=== PATIENT | male | born 1955 | race Caucasian/White ===

== ENCOUNTER 2020-11-27 07:52 | Emergency (ER) | payer MEDICARE, MEDICAID ==
[~2020-11-27] VITALS: Ht 167.6 cm; Wt 75.0 kg
[2020-11-27] MEDS ORDERED: MORPHINE SULFATE 2 MG/ML SYRINGE IVP ONE (08:30)
[2020-11-27] MEDS ORDERED: ONDANSETRON HCL 4 MG/2 ML VIAL IVP ONE (08:30)
[2020-11-27] MEDS ORDERED: SODIUM CHLORIDE 0.9% 1,000 ML IV ONE (08:30)
[2020-11-27] MEDS ORDERED: BARIUM SULFATE 0.1% SUSPENSION 450 ML BOTTLE PO ONE (08:30)
[2020-11-27] MEDS ORDERED: IOHEXOL 350 MG/ML 100 ML VIAL ONE (09:05)
[2020-11-27] MEDS ORDERED: SODIUM CHLORIDE 0.9% 100 ML ONE (09:05)
[2020-11-27 09:07] LABS: COVID AG,FIA SOURCE NASOPHARYNGEAL
[2020-11-27 11:15] LABS: BASOPHILS % (AUTO) 1.4 % (0.0-2.0); EOSINOPHILS % (AUTO) 7.1 % (1.0-6.0); HEMATOCRIT 35.1 % (41-53); HEMOGLOBIN 11.7 g/dL (13.5-17.5); LYMPHOCYTES # (AUTO) 1.7 K/uL (1.0-4.8); LYMPHOCYTES % (AUTO) 27.8 % (22.0-44.0); MEAN CORPUSCULAR HGB CONC 33.3 G/dL (31.0-37.0); MEAN CORPUSCULAR VOLUME 84 fL (80-100); MONOCYTES # (AUTO) 0.7 K/uL (0.1-1.0); NEUTROPHILS # (AUTO) 3.2 K/uL (1.8-7.7); NEUTROPHILS % (AUTO) 51.7 % (40.0-70.0); PLATELET COUNT (AUTO) 327 K/uL (150-450); RED BLOOD CELL COUNT(AUTO) 4.16 MIL/uL (4.50-5.90); RED CELL DISTRIBUTION WIDTH 14.8 % (11.5-14.5)
[2020-11-27 11:31] LABS: ANION GAP 8 mmol/L (8-16); CARBON DIOXIDE 26 mmol/L (22-29); CHLORIDE 100 mmol/L (98-107); CREATININE 0.86 mg/dL (0.60-1.30); GLOMERULAR FILTR. RATE CALC > 60 mL/min (>60); GLUCOSE,RANDOM 88 mg/dL (70-110); POTASSIUM 4.1 mmol/L (3.5-5.1); SODIUM SERUM 134 mmol/L (136-145); UREA NITROGEN, BLOOD 9 mg/dL (7-18)
[2020-11-27 11:34] LABS: ALANINE AMINOTRANSFERASE 17 U/L (12-78); ALBUMIN 3.4 g/dL (3.4-5.0); ALKALINE PHOSPHATASE 89 U/L (46-116); ASPARTATE AMINOTRANSFERASE 13 U/L (15-37); BILIRUBIN,TOTAL 0.6 mg/dL (0.1-1.0); LIPASE 363 U/L (73-393); TOTAL PROTEIN, SERUM 7.9 g/dL (6.4-8.2)
[2020-11-27] MEDS ORDERED: HYDROmorphone 2 MG/ML VIAL IVP ONE (12:15)
[2020-11-27 13:34] LABS: APPEARANCE,URINE CLOUDY (CLEAR); BILIRUBIN,URINE NEGATIVE (NEGATIVE); GLUCOSE, URINE (UA) NEGATIVE (NEGATIVE); KETONES,URINE NEGATIVE (NEGATIVE); NITRATE,URINE NEGATIVE (NEGATIVE); OCCULT BLOOD,URINE NEGATIVE (NEGATIVE); PROTEIN,URINE NEGATIVE (NEGATIVE); UROBILINOGEN,URINE 0.2 mg/dL (<=1.0)
[2020-11-27 13:39] LABS: LEUKOCYTE ESTERASE ,URINE MODERATE (NEGATIVE); RBC,URINE None Seen /HPF (0-2)
[2020-11-27 13:40] LABS: BACTERIA,URINE Few /HPF (None Seen)
[2020-11-27] MEDS ORDERED: DIPHENOXYLATE/ATROP 2.5-0.025 MG TABLET PO ONE (14:15)
[2020-11-27] MEDS ORDERED: CEPHALEXIN MONOHYDRATE 500 MG CAPSULE PO ONE (14:15)
[2020-11-27 14:43] VITALS: BP 134/99
== END 2020-11-27 15:09 | disposition home or self-care (01) ==
LOC: EMS 07:52
DX: R10.84 Generalized abdominal pain (principal); K52.9 Noninfective gastroenteritis and colitis, unspecified; N39.0 Urinary tract infection, site not specified; Z20.822 Contact with and (suspected) exposure to COVID-19; Z87.39 Personal history of other diseases of the musculoskeletal system and connective tissue
CPT/HCPCS: 36415; 71045; 74177; 80053; 81001; 83605; 83690; 83880; 84484; 85025; 87040; 87077; 87086; 87186; 87426; 93005; 96361; 96374; 96375; 99285; J1170; J2270; J2405; J7030; Q9967; J7050

== ENCOUNTER 2020-11-29 13:08 | Emergency (ER) | payer MEDICARE, MEDICAID ==
[~2020-11-29] VITALS: Ht 175.3 cm; Wt 56.8 kg
[2020-11-29 13:18] VITALS: BP 124/67
[2020-11-29] MEDS ORDERED: HYDROmorphone 2 MG/ML VIAL IM ONE (13:45)
== END 2020-11-29 14:22 | disposition home or self-care (01) ==
LOC: EMS 13:08
DX: M25.572 Pain in left ankle and joints of left foot (principal)
CPT/HCPCS: 96372; 99283; J1170

== ENCOUNTER 2020-12-11 09:39 | Emergency (ER) | payer MEDICARE, MEDICAID ==
[~2020-12-11] VITALS: Ht 177.8 cm; Wt 63.6 kg
[2020-12-11] MEDS ORDERED: HYDROmorphone 2 MG/ML VIAL IM ONE (12:45)
[2020-12-11 14:02] VITALS: BP 144/81
== END 2020-12-11 14:04 | disposition home or self-care (01) ==
LOC: EMS 09:42
DX: M25.571 Pain in right ankle and joints of right foot (principal); Z87.39 Personal history of other diseases of the musculoskeletal system and connective tissue
CPT/HCPCS: 96372; 99283; J1170

== ENCOUNTER 2020-12-13 12:46 | Emergency (ER) | payer MEDICARE, MEDICAID ==
[~2020-12-13] VITALS: Ht 175.3 cm; Wt 63.6 kg
[2020-12-13] MEDS ORDERED: TraMADol HCL 50 MG TABLET PO ONE (15:15)
[2020-12-13 15:18] VITALS: BP 166/74
== END 2020-12-13 15:34 | disposition home or self-care (01) ==
LOC: EMS 12:46
DX: S32.10XA Unspecified fracture of sacrum, initial encounter for closed fracture (principal); W19.XXXA Unspecified fall, initial encounter; Y93.89 Activity, other specified; Y92.89 Other specified places as the place of occurrence of the external cause; Y99.8 Other external cause status
CPT/HCPCS: 72220; 99283

== ENCOUNTER 2020-12-20 12:37 | Emergency (ER) | payer MEDICARE, MEDICAID ==
[~2020-12-20] VITALS: Ht 175.3 cm; Wt 63.6 kg
[2020-12-20 13:45] VITALS: BP 133/87
== END 2020-12-20 14:48 | disposition home or self-care (01) ==
LOC: EMS 12:37
DX: H66.91 Otitis media, unspecified, right ear (principal)
CPT/HCPCS: 99283; Z7502

== ENCOUNTER 2021-02-11 13:18 | Emergency (ER) | payer MEDICARE, MEDICAID ==
[~2021-02-11] VITALS: Ht 175.3 cm; Wt 68.2 kg
[~2021-02-11 13:18] MED LIST: AMLO-257 PO
[2021-02-11] MEDS ORDERED: HYDR200T38 PO (13:37)
[2021-02-11 13:41] VITALS: BP 116/85
[2021-02-11] MEDS ORDERED: RAME8TAB24 PO (14:43)
[2021-02-11] MEDS ORDERED: GABA-529 PO (14:43)
[2021-02-11] MEDS ORDERED: QUET50TA79 PO (14:43)
[2021-02-11] MEDS ORDERED: TRAZ-252 PO (14:43)
[2021-02-11] MEDS ORDERED: ALPR0.255 PO (14:43)
[2021-02-11] MEDS ORDERED: OxyCODONE HCL 10 MG IR TABLET PO ONE (14:45)
== END 2021-02-11 15:29 | disposition home or self-care (01) ==
LOC: EMS 13:18
DX: M79.18 Myalgia, other site (principal); Z76.0 Encounter for issue of repeat prescription; Z79.899 Other long term (current) drug therapy
CPT/HCPCS: 99283

== ENCOUNTER 2021-03-21 10:07 | Emergency (ER) | payer MEDICARE, MEDICAID ==
[~2021-03-21] VITALS: Ht 175.3 cm; Wt 68.2 kg
[~2021-03-21 10:07] MED LIST changes: +ALPR0.255 PO; +GABA-529 PO; +HYDR200T38 PO; +QUET50TA79 PO; +RAME8TAB24 PO; +TRAZ-252 PO
[2021-03-21 10:38] VITALS: BP 152/86
== END 2021-03-21 13:51 | disposition home or self-care (01) ==
LOC: EMS 10:18
DX: M25.561 Pain in right knee (principal); Z79.899 Other long term (current) drug therapy
CPT/HCPCS: 99283; Z7502

== ENCOUNTER 2021-05-21 15:10 | Emergency (ER) | payer MEDICARE, MEDICAID ==
[~2021-05-21] VITALS: Ht 175.3 cm; Wt 63.6 kg
[2021-05-21] MEDS ORDERED: OXYC20TA58 PO (15:36)
[2021-05-21] MEDS ORDERED: DIPH-654 PO (15:36)
[2021-05-21 15:38] VITALS: BP 136/99
[2021-05-21] MEDS ORDERED: OxyCODONE HCL/ACETAMINOPHEN 5-325 MG TABLET PO ONE (15:45)
[2021-05-21] MEDS ORDERED: DIPHENOXYLATE/ATROP 2.5-0.025 MG TABLET PO ONE (15:45)
== END 2021-05-21 15:50 | disposition home or self-care (01) ==
LOC: EMS 15:25
DX: R10.84 Generalized abdominal pain (principal); M06.9 Rheumatoid arthritis, unspecified; Z79.899 Other long term (current) drug therapy
CPT/HCPCS: 99283

== ENCOUNTER 2021-05-24 04:48 | Emergency (ER) | payer MEDICARE, MEDICAID ==
[~2021-05-24] VITALS: Ht 175.3 cm; Wt 66.4 kg
[~2021-05-24 04:48] MED LIST changes: +DIPH-654 PO; +OXYC20TA58 PO
[2021-05-24 04:58] VITALS: BP 161/71
[2021-05-24] MEDS ORDERED: FAMOTIDINE 20 MG TABLET PO ONE (05:15)
[2021-05-24] MEDS ORDERED: KETOROLAC TROMETHAMINE 30 MG/ML VIAL IM ONE (05:15)
[2021-05-24] MEDS ORDERED: FAMO20 PO (05:18)
[2021-05-24] MEDS ORDERED: PredniSONE 20 MG TABLET PO ONE (05:30)
== END 2021-05-24 06:19 | disposition home or self-care (01) ==
LOC: EMS 04:49
DX: G89.29 Other chronic pain (principal); K21.9 Gastro-esophageal reflux disease without esophagitis; F41.9 Anxiety disorder, unspecified; M25.542 Pain in joints of left hand; M25.541 Pain in joints of right hand; Z76.0 Encounter for issue of repeat prescription
CPT/HCPCS: 96372; 99283; J1885; J7512

== ENCOUNTER 2021-06-17 14:00 | Emergency (ER) | payer MEDICARE, MEDICAID ==
[~2021-06-17] VITALS: Ht 175.3 cm; Wt 65.9 kg
[~2021-06-17 14:00] MED LIST changes: +FAMO20 PO
[2021-06-17] MEDS ORDERED: HYDROCODONE/ACETAMINOPHEN 5-325 MG TABLET PO ONE (15:30)
[2021-06-17] MEDS ORDERED: PredniSONE 20 MG TABLET PO ONE (15:30)
[2021-06-17] MEDS ORDERED: OXYC1TAB6 PO (15:37)
[2021-06-17 16:50] VITALS: BP 140/102
[2021-06-17] MEDS ORDERED: PRED-554 PO (16:58)
== END 2021-06-17 17:18 | disposition home or self-care (01) ==
LOC: EMS 14:00
DX: M25.531 Pain in right wrist (principal); M25.532 Pain in left wrist; M25.562 Pain in left knee; M25.561 Pain in right knee; Z82.61 Family history of arthritis
CPT/HCPCS: 73130; 99283; J7512

== ENCOUNTER 2021-06-20 11:08 | Emergency (ER) | payer MEDICARE, MEDICAID ==
[~2021-06-20] VITALS: Ht 175.3 cm; Wt 63.6 kg
[~2021-06-20 11:08] MED LIST changes: -ALPR0.255 PO; -AMLO-257 PO; -DIPH-654 PO; -FAMO20 PO; -GABA-529 PO; -HYDR200T38 PO; +OXYC1TAB6 PO; -OXYC20TA58 PO; +PRED-554 PO; -QUET50TA79 PO; -RAME8TAB24 PO; -TRAZ-252 PO
[2021-06-20 11:17] VITALS: BP 156/98
[2021-06-20] MEDS ORDERED: TRAM50TA4 PO (11:17)
[2021-06-20] MEDS ORDERED: MORPHINE SULFATE 4 MG/ML SYRINGE IM ONE (13:00)
[2021-06-20] MEDS ORDERED: PRED-554 PO (13:07)
[2021-06-20] MEDS ORDERED: PredniSONE 20 MG TABLET PO ONE (13:15)
== END 2021-06-20 13:41 | disposition home or self-care (01) ==
LOC: EMS 11:08
DX: M06.9 Rheumatoid arthritis, unspecified (principal); G89.29 Other chronic pain; Z76.0 Encounter for issue of repeat prescription
CPT/HCPCS: 96372; 99283; J2270; J7512

== ENCOUNTER 2021-06-24 13:41 | Emergency (ER) | payer MEDICARE, MEDICAID ==
[~2021-06-24] VITALS: Ht 167.6 cm; Wt 63.6 kg
[~2021-06-24 13:41] MED LIST changes: +TRAM50TA4 PO
[2021-06-24] MEDS ORDERED: PRED-554 PO (14:28)
[2021-06-24] MEDS ORDERED: PredniSONE 20 MG TABLET PO ONE (14:30)
[2021-06-24] MEDS ORDERED: MORPHINE SULFATE 4 MG/ML SYRINGE IM ONE (14:30)
[2021-06-24 14:46] VITALS: BP 132/83
== END 2021-06-24 15:00 | disposition home or self-care (01) ==
LOC: EMS 13:51
DX: M06.9 Rheumatoid arthritis, unspecified (principal); M54.50 Low back pain, unspecified; M79.652 Pain in left thigh; M79.651 Pain in right thigh; M25.532 Pain in left wrist; M25.531 Pain in right wrist; G89.29 Other chronic pain
CPT/HCPCS: 96372; 99283; J2270; J7512

== ENCOUNTER 2021-07-02 09:27 | Emergency (ER) | payer MEDICARE, MEDICAID ==
[~2021-07-02] VITALS: Ht 175.3 cm; Wt 63.6 kg
[2021-07-02] MEDS ORDERED: FAMOTIDINE 20 MG TABLET PO ONE (10:00)
[2021-07-02] MEDS ORDERED: OxyCODONE HCL 5 MG IR TABLET PO ONE ×2 (10:00→10:15)
[2021-07-02 10:17] VITALS: BP 161/126
== END 2021-07-02 10:24 | disposition home or self-care (01) ==
LOC: EMS 09:31
DX: R52 Pain, unspecified (principal); M06.9 Rheumatoid arthritis, unspecified
CPT/HCPCS: 99283

== ENCOUNTER 2021-07-16 14:55 | Emergency (ER) | payer MEDICARE, MEDICAID ==
[~2021-07-16] VITALS: Ht 175.3 cm; Wt 65.0 kg
[2021-07-16] MEDS ORDERED: ONDANSETRON HCL 4 MG/2 ML VIAL IM ONE (15:45)
[2021-07-16 15:56] LABS: COVID AG,FIA SOURCE NASAL SWAB
[2021-07-16 16:14] LABS: INFLUENZA TYPE A NEGATIVE FOR TYPE A (NEGATIVE); INFLUENZA TYPE B NEGATIVE FOR TYPE B (NEGATIVE)
[2021-07-16 16:25] LABS: BASOPHILS % (AUTO) 0.9 % (0.0-2.0); EOSINOPHILS % (AUTO) 5.5 % (1.0-6.0); HEMATOCRIT 38.3 % (41-53); HEMOGLOBIN 12.9 g/dL (13.5-17.5); LYMPHOCYTES # (AUTO) 1.3 K/uL (1.0-4.8); LYMPHOCYTES % (AUTO) 20.8 % (22.0-44.0); MEAN CORPUSCULAR HEMOGLOBIN 28.8 pg (26.0-34.0); MEAN CORPUSCULAR HGB CONC 33.6 G/dL (31.0-37.0); MEAN CORPUSCULAR VOLUME 86 fL (80-100); MONOCYTES # (AUTO) 0.9 K/uL (0.1-1.0); MONOCYTES % (AUTO) 14.9 % (2.0-9.0); NEUTROPHILS # (AUTO) 3.7 K/uL (1.8-7.7); NEUTROPHILS % (AUTO) 57.9 % (40.0-70.0); PLATELET COUNT (AUTO) 271 K/uL (150-450); RED BLOOD CELL COUNT(AUTO) 4.47 MIL/uL (4.50-5.90); RED CELL DISTRIBUTION WIDTH 17.2 % (11.5-14.5)
[2021-07-16 16:35] LABS: ANION GAP 10 mmol/L (8-16); CALCIUM, TOTAL 9.6 mg/dL (8.8-10.5); CARBON DIOXIDE 26 mmol/L (22-29); CHLORIDE 96 mmol/L (98-107); CREATININE 0.89 mg/dL (0.60-1.30); GLOMERULAR FILTR. RATE CALC > 60 mL/min (>60); GLUCOSE,RANDOM 97 mg/dL (70-110); POTASSIUM 4.9 mmol/L (3.5-5.1); SODIUM SERUM 132 mmol/L (136-145); UREA NITROGEN, BLOOD 19 mg/dL (7-18)
[2021-07-16 16:40] LABS: ALANINE AMINOTRANSFERASE 18 U/L (12-78); ALBUMIN 3.3 g/dL (3.4-5.0); ALKALINE PHOSPHATASE 126 U/L (46-116); ASPARTATE AMINOTRANSFERASE 13 U/L (15-37); BILIRUBIN,TOTAL 0.6 mg/dL (0.1-1.0); LIPASE 145 U/L (73-393); TOTAL PROTEIN, SERUM 7.5 g/dL (6.4-8.2)
[2021-07-16 16:45] VITALS: BP 144/99
[2021-07-16] MEDS ORDERED: ONDA-104 PO (16:46)
== END 2021-07-16 17:10 | disposition home or self-care (01) ==
LOC: EMS 14:55
DX: R11.2 Nausea with vomiting, unspecified (principal); R19.7 Diarrhea, unspecified; F41.9 Anxiety disorder, unspecified; G89.29 Other chronic pain; M06.9 Rheumatoid arthritis, unspecified; Z20.822 Contact with and (suspected) exposure to COVID-19
CPT/HCPCS: 36415; 80053; 82962; 83690; 85025; 87426; 87804; 96372; 99283; J2405

== ENCOUNTER 2021-08-15 15:37 | Emergency (ER) | payer MEDICARE, MEDICAID ==
[~2021-08-15] VITALS: Ht 175.3 cm; Wt 63.6 kg
[~2021-08-15 15:37] MED LIST changes: +ONDA-104 PO
[2021-08-15] MEDS ORDERED: FAMOTIDINE 20 MG TABLET PO ONE (16:00)
[2021-08-15] MEDS ORDERED: DICL100G51 TP (18:28)
[2021-08-15 21:12] VITALS: BP 144/73
== END 2021-08-15 21:14 | disposition home or self-care (01) ==
LOC: EMS 15:37
DX: M25.552 Pain in left hip (principal); M06.9 Rheumatoid arthritis, unspecified
CPT/HCPCS: 72170; 99283

== ENCOUNTER 2022-01-18 11:18 | Emergency (ER) | payer MEDICARE, MEDICAID ==
[~2022-01-18] VITALS: Ht 175.3 cm; Wt 63.0 kg
[~2022-01-18 11:18] MED LIST changes: +DICL100G51 TP; +TRAM-559 PO; -TRAM50TA4 PO
[2022-01-18] MEDS ORDERED: ACETAMINOPHEN 500 MG TABLET PO ONE (12:45)
[2022-01-18] MEDS ORDERED: KETOROLAC TROMETHAMINE 30 MG/ML VIAL IM ONE (12:45)
[2022-01-18 13:40] LABS: APPEARANCE,URINE HAZY (CLEAR); BILIRUBIN,URINE NEGATIVE (NEGATIVE); GLUCOSE, URINE (UA) NEGATIVE (NEGATIVE); KETONES,URINE NEGATIVE (NEGATIVE); LEUKOCYTE ESTERASE ,URINE LARGE (NEGATIVE); NITRATE,URINE POSITIVE (NEGATIVE); OCCULT BLOOD,URINE MODERATE (NEGATIVE); PH,URINE 6.5 (5.0-8.0); PROTEIN,URINE 30-70 mg/dL (NEGATIVE); SPECIFIC GRAVITIY, URINE 1.018 (1.003-1.030); UROBILINOGEN,URINE <=1.0 mg/dL (<=1.0)
[2022-01-18 13:51] LABS: WBC,URINE >100 /HPF (0-5)
[2022-01-18 13:52] LABS: BACTERIA,URINE Many /HPF (None Seen)
[2022-01-18] MEDS ORDERED: CEPH-558 PO (14:20)
[2022-01-18] MEDS ORDERED: CEPHALEXIN MONOHYDRATE 500 MG CAPSULE PO ONE (14:30)
[2022-01-18 14:59] VITALS: BP 135/74
== END 2022-01-18 15:41 | disposition home or self-care (01) ==
LOC: EMS 13:28
DX: S83.412A Sprain of medial collateral ligament of left knee, initial encounter (principal); N39.0 Urinary tract infection, site not specified; M06.9 Rheumatoid arthritis, unspecified; X58.XXXA Exposure to other specified factors, initial encounter; Y93.89 Activity, other specified; Y92.89 Other specified places as the place of occurrence of the external cause; Y99.8 Other external cause status
CPT/HCPCS: 99284; 81001; 87086; 87186; 73562; 96372; J1885

== ENCOUNTER 2022-10-25 13:44 | Inpatient (IN) | payer MEDICARE, MEDICAID ==
[~2022-10-25] VITALS: Ht 175.3 cm; Wt 63.5 kg
[~2022-10-25 13:44] MED LIST changes: +CEPH-558 PO; -DICL100G51 TP; +DICL100G60 TP
[2022-10-25] MEDS ORDERED: FAMOTIDINE 20 MG/2 ML VIAL IVP ONE (14:30)
[2022-10-25] MEDS ORDERED: ONDANSETRON HCL 4 MG/2 ML VIAL IVP ONE (14:30)
[2022-10-25 15:21] LABS: BASOPHILS % (AUTO) 0.3 % (0.0-2.0); HEMATOCRIT 43.1 % (41-53); HEMOGLOBIN 14.1 g/dL (13.5-17.5); LYMPHOCYTES # (AUTO) 0.8 K/uL (1.0-4.8); LYMPHOCYTES % (AUTO) 11.3 % (22.0-44.0); MEAN CORPUSCULAR HEMOGLOBIN 28.8 pg (26.0-34.0); MEAN CORPUSCULAR HGB CONC 32.8 G/dL (31.0-37.0); MEAN CORPUSCULAR VOLUME 88 fL (80-100); MONOCYTES # (AUTO) 1.2 K/uL (0.1-1.0); MONOCYTES % (AUTO) 16.4 % (2.0-9.0); NEUTROPHILS # (AUTO) 5.3 K/uL (1.8-7.7); PLATELET COUNT (AUTO) 128 K/uL (150-450); RED BLOOD CELL COUNT(AUTO) 4.91 MIL/uL (4.50-5.90); WHITE BLOOD COUNT (AUTO) 7.4 K/uL (4.5-11.0)
[2022-10-25 15:27] LABS: COVID AG,FIA SOURCE NASOPHARYNGEAL
[2022-10-25 15:35] LABS: PROTHROMBIN TIME 10.7 SEC (9.4-11.6)
[2022-10-25 15:36] LABS: ALANINE AMINOTRANSFERASE 29 U/L (12-78); ALBUMIN 3.1 g/dL (3.4-5.0); ALKALINE PHOSPHATASE 80 U/L (46-116); ANION GAP 15 mmol/L (8-16); ASPARTATE AMINOTRANSFERASE 18 U/L (15-37); BILIRUBIN,TOTAL 2.1 mg/dL (0.1-1.0); CALCIUM, TOTAL 8.6 mg/dL (8.8-10.5); CARBON DIOXIDE 21 mmol/L (22-29); CHLORIDE 92 mmol/L (98-107); CREATINE KINASE, TOTAL ONLY 39 U/L (39-308); CREATININE 0.58 mg/dL (0.60-1.30); GLOMERULAR FILTR. RATE CALC > 60 mL/min (>60); GLUCOSE,RANDOM 96 mg/dL (70-110); LIPASE 32 U/L (16-77); SODIUM SERUM 128 mmol/L (136-145); TOTAL PROTEIN, SERUM 7.5 g/dL (6.4-8.2); UREA NITROGEN, BLOOD 18 mg/dL (7-18)
[2022-10-25 15:37] LABS: TROPONIN I-HIGH SENSITIVITY 6 ng/L (<76)
[2022-10-25 15:39] LABS: B-TYPE NATRIURETIC PEPTIDE 115 pg/mL (0-100)
[2022-10-25 15:40] LABS: SARS-COV2 (COVID) ANTIGEN,FIA Negative (Negative)
[2022-10-25 15:41] LABS: POTASSIUM 2.5 mmol/L (3.5-5.1)
[2022-10-25 15:42] LABS: PHOSPHORUS 1.4 mg/dL (2.5-4.9)
[2022-10-25] MEDS ORDERED: POTASSIUM CHLORIDE 20 MEQ ER TABLET PO ONE (16:00)
[2022-10-25] MEDS ORDERED: POTASSIUM PHOS,M-BASIC-D-BASIC 10 MMOL in DEXTROSE 5%-WATER 100 ML IV ONE (16:00)
[2022-10-25] MEDS: POTASSIUM CHL 10 MEQ/WATER 50 ML IV SCH ×2 (16:05→17:05)
[2022-10-25] MEDS ORDERED: MAGNESIUM HYDROXIDE SUSPENSION 30 ML UDCUP PO PRN (17:00)
[2022-10-25] MEDS ORDERED: SODIUM CHLORIDE 0.9% 1,000 ML IV ONE (17:00)
[2022-10-25] MEDS ORDERED: POTASSIUM CHLORIDE 20 MEQ ER TABLET PO PRN (17:00)
[2022-10-25] MEDS ORDERED: POTASSIUM CHL 10 MEQ/WATER 50 ML IV PRN (17:00)
[2022-10-25 17:16] LABS: APPEARANCE,URINE CLEAR (CLEAR); BILIRUBIN,URINE NEGATIVE (NEGATIVE); COLOR,URINE YELLOW (YELLOW); GLUCOSE, URINE (UA) NEGATIVE (NEGATIVE); KETONES,URINE 80-100 mg/dL (NEGATIVE); LEUKOCYTE ESTERASE ,URINE LARGE (NEGATIVE); NITRATE,URINE POSITIVE (NEGATIVE); OCCULT BLOOD,URINE LARGE (NEGATIVE); PROTEIN,URINE 30-70 mg/dL (NEGATIVE); SPECIFIC GRAVITIY, URINE 1.022 (1.003-1.030)
[2022-10-25 17:34] LABS: BACTERIA,URINE Few /HPF (None Seen); SQUAMOUS EPITHELIAL CELL,UR Few /LPF (None Seen)
[2022-10-25] MEDS ORDERED: CefTRIAXone 1 GM/DEXTROSE 50 ML IV ONE (21:00)
[2022-10-25 22:07] VITALS: BP 147/87; PULSE 85; RESP 19; TEMP 98.4
[2022-10-25] MEDS: HEPARIN SODIUM,PORCINE 5,000 UNITS/ML VIAL SQ SCH (23:45)
[2022-10-26] VITALS (8 sets, daily range): BP systolic 130–141; BP diastolic 70–106; PULSE 80–92; RESP 17–20; TEMP 96.5–99.9
[2022-10-26] MEDS: ACETAMINOPHEN 325 MG TABLET PO PRN ×2 (00:11→08:18)
[2022-10-26] MEDS: FAMOTIDINE 20 MG TABLET PO SCH (08:17)
[2022-10-26] MEDS: HEPARIN SODIUM,PORCINE 5,000 UNITS/ML VIAL SQ SCH ×3 (08:17→23:07)
[2022-10-26 12:08] LABS: ANION GAP 8 mmol/L (8-16); CALCIUM, TOTAL 7.6 mg/dL (8.8-10.5); CARBON DIOXIDE 24 mmol/L (22-29); CHLORIDE 99 mmol/L (98-107); CREATININE 0.62 mg/dL (0.60-1.30); GLOMERULAR FILTR. RATE CALC > 60 mL/min (>60); GLUCOSE,RANDOM 88 mg/dL (70-110); POTASSIUM 3.7 mmol/L (3.5-5.1); SODIUM SERUM 130 mmol/L (136-145); UREA NITROGEN, BLOOD 13 mg/dL (7-18)
[2022-10-26 12:10] LABS: PHOSPHORUS 1.3 mg/dL (2.5-4.9)
[2022-10-26] MEDS ORDERED: POTASSIUM PHOS,M-BASIC-D-BASIC 30 MEQ in DEXTROSE 5%-WATER 150 ML IV ONE (12:45)
[2022-10-26] MEDS ORDERED: SODIUM CHLORIDE 0.9% 500 ML IV ONE (13:01)
[2022-10-26] MEDS: TraMADol HCL 50 MG TABLET PO PRN ×2 (16:34→23:08)
[2022-10-27 03:06] LABS: HEPATITIS C AB (EIA) Non Reactive (Non Reactive)
[2022-10-27 04:18] VITALS: BP 124/81; PULSE 98; RESP 20; TEMP 99.4
[2022-10-27 06:52] LABS: ANION GAP 9 mmol/L (8-16); CALCIUM, TOTAL 7.8 mg/dL (8.8-10.5); CARBON DIOXIDE 23 mmol/L (22-29); CHLORIDE 97 mmol/L (98-107); GLOMERULAR FILTR. RATE CALC > 60 mL/min (>60); GLUCOSE,RANDOM 92 mg/dL (70-110); POTASSIUM 3.5 mmol/L (3.5-5.1); SODIUM SERUM 129 mmol/L (136-145); UREA NITROGEN, BLOOD 10 mg/dL (7-18)
[2022-10-27 06:54] LABS: PHOSPHORUS 1.3 mg/dL (2.5-4.9)
[2022-10-27 07:15] VITALS: BP 128/77; PULSE 98; RESP 20; TEMP 100
[2022-10-27] MEDS: FAMOTIDINE 20 MG TABLET PO SCH (07:48)
[2022-10-27] MEDS: TraMADol HCL 50 MG TABLET PO PRN ×2 (07:50→14:41)
[2022-10-27] MEDS: HEPARIN SODIUM,PORCINE 5,000 UNITS/ML VIAL SQ SCH ×2 (08:00→16:00)
[2022-10-27] MEDS ORDERED: SODIUM PHOS,M-BASIC-D-BASIC 30 MEQ in DEXTROSE 5%-WATER 150 ML IV ONE (10:30)
[2022-10-27 11:52] VITALS: BP 122/65; PULSE 91; RESP 18; TEMP 99.7
[2022-10-27] MEDS: CefTRIAXone SODIUM 250 MG in DEXTROSE 5%-WATER 50 ML IV SCH (12:54)
[2022-10-27 15:50] VITALS: BP 137/73; PULSE 84; RESP 18; TEMP 99
[2022-10-27 20:21] VITALS: BP 115/66; PULSE 85; RESP 18; TEMP 98.1
[2022-10-28 00:58] VITALS: BP 119/69; PULSE 82; RESP 18; TEMP 98
[2022-10-28] MEDS: TraMADol HCL 50 MG TABLET PO PRN ×3 (04:46→20:33)
[2022-10-28 05:16] VITALS: BP 125/68; PULSE 80; RESP 17; TEMP 97.9
[2022-10-28 07:35] VITALS: BP 122/71; PULSE 87; RESP 18; TEMP 98
[2022-10-28] MEDS: FAMOTIDINE 20 MG TABLET PO SCH (09:07)
[2022-10-28] MEDS: HEPARIN SODIUM,PORCINE 5,000 UNITS/ML VIAL SQ SCH ×3 (09:07→16:10)
[2022-10-28] MEDS: CefTRIAXone SODIUM 250 MG in DEXTROSE 5%-WATER 50 ML IV SCH (10:49)
[2022-10-28 11:54] VITALS: BP 117/77; PULSE 89; RESP 18; TEMP 97.8
[2022-10-28] MEDS: SODIUM,POTASSIUM PHOSPHATES POWDER PACKET PO SCH ×2 (12:35→18:12)
[2022-10-28 16:03] VITALS: BP 119/69; PULSE 88; RESP 18; TEMP 98
[2022-10-28 19:36] VITALS: BP 113/64; PULSE 99; RESP 18; TEMP 98.9
[2022-10-29 00:13] VITALS: BP 121/72; PULSE 94; RESP 18; TEMP 98.9
[2022-10-29] MEDS: TraMADol HCL 50 MG TABLET PO PRN ×3 (03:59→16:52)
[2022-10-29 04:00] VITALS: BP 127/65; PULSE 95; RESP 19; TEMP 98.6
[2022-10-29 06:20] LABS: BASOPHILS % (AUTO) 0.9 % (0.0-2.0); EOSINOPHILS % (AUTO) 7.3 % (1.0-6.0); HEMATOCRIT 32.4 % (41-53); HEMOGLOBIN 10.4 g/dL (13.5-17.5); LYMPHOCYTES # (AUTO) 1.4 K/uL (1.0-4.8); MEAN CORPUSCULAR HEMOGLOBIN 28.5 pg (26.0-34.0); MEAN CORPUSCULAR HGB CONC 32.2 G/dL (31.0-37.0); MEAN CORPUSCULAR VOLUME 88 fL (80-100); MONOCYTES % (AUTO) 21.8 % (2.0-9.0); NEUTROPHILS # (AUTO) 1.9 K/uL (1.8-7.7); PLATELET COUNT (AUTO) 167 K/uL (150-450); RED BLOOD CELL COUNT(AUTO) 3.66 MIL/uL (4.50-5.90); RED CELL DISTRIBUTION WIDTH 15.9 % (11.5-14.5); WHITE BLOOD COUNT (AUTO) 4.7 K/uL (4.5-11.0)
[2022-10-29 06:36] LABS: ALBUMIN 1.8 g/dL (3.4-5.0); ALKALINE PHOSPHATASE 60 U/L (46-116); ANION GAP 8 mmol/L (8-16); ASPARTATE AMINOTRANSFERASE 12 U/L (15-37); BILIRUBIN,TOTAL 0.4 mg/dL (0.1-1.0); CALCIUM, TOTAL 7.8 mg/dL (8.8-10.5); CARBON DIOXIDE 26 mmol/L (22-29); CHLORIDE 100 mmol/L (98-107); CREATININE 0.67 mg/dL (0.60-1.30); GLOMERULAR FILTR. RATE CALC > 60 mL/min (>60); GLUCOSE,RANDOM 91 mg/dL (70-110); PHOSPHORUS 2.8 mg/dL (2.5-4.9); POTASSIUM 3.6 mmol/L (3.5-5.1); SODIUM SERUM 134 mmol/L (136-145); TOTAL PROTEIN, SERUM 5.7 g/dL (6.4-8.2); UREA NITROGEN, BLOOD 8 mg/dL (7-18)
[2022-10-29 06:44] LABS: ALANINE AMINOTRANSFERASE 9 U/L (12-78)
[2022-10-29 07:25] VITALS: BP 107/75; PULSE 91; RESP 18; TEMP 98
[2022-10-29] MEDS: SODIUM,POTASSIUM PHOSPHATES POWDER PACKET PO SCH ×3 (08:03→18:27)
[2022-10-29] MEDS: FAMOTIDINE 20 MG TABLET PO SCH (08:04)
[2022-10-29] MEDS: HEPARIN SODIUM,PORCINE 5,000 UNITS/ML VIAL SQ SCH ×4 (08:15→23:53)
[2022-10-29] MEDS: CefTRIAXone SODIUM 250 MG in DEXTROSE 5%-WATER 50 ML IV SCH (10:17)
[2022-10-29 11:20] VITALS: BP 127/74; PULSE 96; RESP 18; TEMP 98
[2022-10-29] MEDS ORDERED: PEG 400/HYPROMELLOSE/GLYCERIN 15 ML OPHTHALMIC SOLUTION OU PRN (15:00)
[2022-10-29 15:38] VITALS: BP 114/75; PULSE 94; RESP 18; TEMP 98
[2022-10-29 20:29] VITALS: BP 126/80; PULSE 105; RESP 18; TEMP 97.9
[2022-10-30 00:37] VITALS: BP 122/76; PULSE 99; RESP 18; TEMP 97.8
[2022-10-30 05:11] VITALS: BP 125/72; PULSE 98; RESP 18; TEMP 97.9
[2022-10-30 06:31] LABS: EOSINOPHILS % (AUTO) 7.2 % (1.0-6.0); HEMATOCRIT 34.2 % (41-53); HEMOGLOBIN 11.3 g/dL (13.5-17.5); LYMPHOCYTES # (AUTO) 1.3 K/uL (1.0-4.8); LYMPHOCYTES % (AUTO) 27.5 % (22.0-44.0); MEAN CORPUSCULAR VOLUME 88 fL (80-100); MONOCYTES % (AUTO) 22.6 % (2.0-9.0); NEUTROPHILS # (AUTO) 1.9 K/uL (1.8-7.7); NEUTROPHILS % (AUTO) 41.7 % (40.0-70.0); PLATELET COUNT (AUTO) 210 K/uL (150-450); RED BLOOD CELL COUNT(AUTO) 3.89 MIL/uL (4.50-5.90); RED CELL DISTRIBUTION WIDTH 15.6 % (11.5-14.5); WHITE BLOOD COUNT (AUTO) 4.6 K/uL (4.5-11.0)
[2022-10-30 07:09] LABS: ALANINE AMINOTRANSFERASE 6 U/L (12-78); ALBUMIN 2.1 g/dL (3.4-5.0); ALKALINE PHOSPHATASE 62 U/L (46-116); ASPARTATE AMINOTRANSFERASE 15 U/L (15-37); BILIRUBIN,TOTAL 0.3 mg/dL (0.1-1.0); CALCIUM, TOTAL 8.7 mg/dL (8.8-10.5); CARBON DIOXIDE 27 mmol/L (22-29); CHLORIDE 103 mmol/L (98-107); CREATININE 0.61 mg/dL (0.60-1.30); GLOMERULAR FILTR. RATE CALC > 60 mL/min (>60); GLUCOSE,RANDOM 102 mg/dL (70-110); TOTAL PROTEIN, SERUM 6.5 g/dL (6.4-8.2); UREA NITROGEN, BLOOD 10 mg/dL (7-18)
[2022-10-30 07:18] LABS: ANION GAP 2 mmol/L (8-16); POTASSIUM 4.1 mmol/L (3.5-5.1); SODIUM SERUM 132 mmol/L (136-145)
[2022-10-30] MEDS: SODIUM,POTASSIUM PHOSPHATES POWDER PACKET PO SCH ×2 (08:22→11:54)
[2022-10-30] MEDS: TraMADol HCL 50 MG TABLET PO PRN ×2 (08:22→14:42)
[2022-10-30] MEDS: HEPARIN SODIUM,PORCINE 5,000 UNITS/ML VIAL SQ SCH ×2 (08:22→16:00)
[2022-10-30] MEDS: FAMOTIDINE 20 MG TABLET PO SCH (08:22)
[2022-10-30] MEDS: CefTRIAXone SODIUM 250 MG in DEXTROSE 5%-WATER 50 ML IV SCH (09:22)
[2022-10-30 09:56] VITALS: BP 115/73; PULSE 91; RESP 20; TEMP 98.3
[2022-10-30 12:00] VITALS: BP 128/79; PULSE 87; RESP 20; TEMP 98.5
[2022-10-30] MEDS ORDERED: TRAM-559 PO (15:09)
== END 2022-10-30 16:40 | disposition home health service (06) | DRG 917 ==
LOC: EMS 13:51 → 5S 19:00
PROVIDERS: ADMIT Internal Medicine; ATTEND Internal Medicine
DX: T43.211A Poisoning by selective serotonin and norepinephrine reuptake inhibitors, accidental (unintentional), initial encounter (principal); E43 Unspecified severe protein-calorie malnutrition; E87.1 Hypo-osmolality and hyponatremia; N39.0 Urinary tract infection, site not specified; E87.6 Hypokalemia; M06.9 Rheumatoid arthritis, unspecified; D69.6 Thrombocytopenia, unspecified; Z20.822 Contact with and (suspected) exposure to COVID-19; M19.90 Unspecified osteoarthritis, unspecified site; E83.39 Other disorders of phosphorus metabolism; B95.61 Methicillin susceptible Staphylococcus aureus infection as the cause of diseases classified elsewhere; Z79.899 Other long term (current) drug therapy; Y92.89 Other specified places as the place of occurrence of the external cause; Z68.20 Body mass index [BMI] 20.0-20.9, adult
CPT/HCPCS: 71045; 80048; 80053; 81001; 82550; 83690; 83735; 83880; 84100; 84132; 84484; 85025; 85610; 85730; 86803; 87086; 87186; 87340; 93005; 97110; 97116; 97162; 97530; 99285; J0696; J1644; J2405; J3480; J3490; J7030; J7040; J7060; 36415-L1; 36415-TC; X7700